=== PATIENT | female | born 1945 | race Caucasian/White ===

== ENCOUNTER 2018-06-30 14:00 | Outpatient (CLI) | payer MEDICARE | END 2018-06-30 14:01 | disposition home or self-care (01) | LOC: BICCT 14:00 | PROVIDERS: ATTEND Internal Medicine Rheumatology | DX: J18.9 Pneumonia, unspecified organism (principal); R16.1 Splenomegaly, not elsewhere classified; I28.1 Aneurysm of pulmonary artery | CPT/HCPCS: 71250 ==

== ENCOUNTER 2018-08-08 07:58 | Outpatient (CLI) | payer MEDICARE ==
--- NOTE | 2018-08-08 09:16 | RAD ---
PA AND LATERAL OF THE CHEST: INDICATION: History of dyspnea. COMPARISON: Prior exam dated 01/26/2017. FINDINGS: Chronic lung change is stable. Mild cardiomegaly is stable. No pleural effusion is evident. No acu te osseous abnormality is noted. IMPRESSION: Stable chronic lung changes and cardiomegaly. No loree consolidation is evident. Reticulonodular op acities seen on a prior exam dated 07/14/2018 are no longer apparent. POS: [facility]
== END 2018-08-08 07:59 | disposition home or self-care (01) ==
LOC: RAD 07:58
PROVIDERS: ATTEND Internal Medicine Critical Care Medicine
DX: R06.00 Dyspnea, unspecified (principal); I51.7 Cardiomegaly
CPT/HCPCS: 71046

== ENCOUNTER 2018-08-11 07:59 | Outpatient (CLI) | payer MEDICARE | END 2018-08-11 08:00 | disposition home or self-care (01) | LOC: CP 07:59 | PROVIDERS: ATTEND Internal Medicine Critical Care Medicine | DX: J45.909 Unspecified asthma, uncomplicated (principal); E11.9 Type 2 diabetes mellitus without complications | CPT/HCPCS: 94060; 94727; 94729 ==

== ENCOUNTER 2019-02-27 08:45 | Outpatient (CLI) | payer MEDICARE ==
--- NOTE | 2019-02-27 10:58 | RAD ---
TWO VIEW CHEST: HISTORY: Dyspnea. COMPARISON: 08/08/2018. FINDINGS: Heart size is mildly prominent. Mild vascular engorgement is again seen. No focal infiltrate or sig nificant effusion. IMPRESSION: Stable chest findings from the prior exam. POS: [facility]
== END 2019-02-27 08:46 | disposition home or self-care (01) ==
LOC: RAD 08:45
PROVIDERS: ATTEND Internal Medicine Critical Care Medicine
DX: R06.00 Dyspnea, unspecified (principal)
CPT/HCPCS: 71046